=== PATIENT | female | born 1945 | race Caucasian/White ===

== ENCOUNTER 2016-12-19 04:54 | Observation (INO) | payer MEDICARE, BC ==
[2016-12-19] MEDS ORDERED: Nitroglycerin TAB 0.4 MG* 0.4 MG TAB SL ONE (05:17)
[2016-12-19] MEDS ORDERED: NS 0.9% 1000 ML* 1,000 ML IV SCH ×2 (05:30→08:30)
[2016-12-19 05:35] LABS: Hematocrit 44 % (35-47); Mean Corpuscular HGB Conc 34 g/dl (31-36); Mean Corpuscular Hemoglobin 34 pg (27-31); Mean Corpuscular Volume 98 fL (80-97); Mean Platelet Volume 8 um3 (7.4-10.4); Red Blood Count 4.46 10^6/ul (4.0-5.4); Red Cell Distribution Width 13 % (10.5-15); White Blood Count 9.1 10^3/ul (3.5-10.8)
[2016-12-19 05:52] LABS: ALT 19 U/L (7-52); Albumin 4.8 g/dL (3.2-5.2); Alkaline Phosphatase 69 U/L (34-104); BUN/Creatinine Ratio 14.8 (8-20); Blood Urea Nitrogen 12 mg/dL (6-24); C Reactive Protein 3.42 mg/L (< 5.00); CO2 Carbon Dioxide 26 mmol/L (22-32); Calcium 10.4 mg/dL (8.6-10.3); Chloride 94 mmol/L (101-111); Creatine Kinase 122 U/L (10-223); EGFR African American 89.1 (>60); EGFR Non-African American 69.3 (>60); Globulin 3.1 g/dL (2-4); Glucose 101 mg/dL (70-100); Lipase 27 U/L (11.0-82.0); Sodium 130 mmol/L (133-145); Total Protein 7.9 g/dL (6.4-8.9)
[2016-12-19 06:07] LABS: TSH (Thyroid Stimulating Horm) 0.85 mcIU/mL (0.34-5.60)
[2016-12-19 06:37] LABS: Anion Gap 10 mmol/L (2-11)
[2016-12-19] MEDS ORDERED: Iohexol 350* (CONTRAST) 500 ML MDV IV ONE (06:38)
--- NOTE | 2016-12-19 08:06 | RAD ---
INDICATION: Chest pain. COMPARISON: Comparison is made with a prior study from January 16, 2013. TECHNIQUE: A portable view of the chest was obtained. FINDINGS: Cardiac and mediastinal contours appear to be within normal limits. The lungs are hyperinflated and clear. No pleural effusion is seen. IMPRESSION: NO EVIDENCE FOR ACUTE DISEASE.
--- NOTE | 2016-12-19 08:09 | RAD ---
Indication: Chest pain, wide mediastinum on chest x-ray Contrast: Administered 100.0 ml of OMNIPAQUE 350 mgi/ml CTA of the chest, abdomen and pelvis was performed after IV contrast administration. No oral contrast was administered. Coronal, sagittal and 3-D reconstructive images were obtained. There is no evidence of aortic aneurysm or aortic dissection. The ascending aorta measures approximately 3.3 cm in greatest AP dimension. Descending aorta measures 3.0 cm in greatest dimension. Atherosclerosis with intimal calcifications are noted. The abdominal aorta demonstrates normal celiac axis and superior mesenteric artery. Renal arteries are grossly unremarkable. Common iliac arteries and external iliac arteries are unremarkable. Inferior thyroid lobes are unremarkable. No mediastinal or hilar adenopathy. Heart is of normal size without evidence of pericardial effusion. The trachea and major bronchi appear patent. No evidence of alveolar consolidation is noted. CT of the abdomen and pelvis demonstrates liver to be normal in size. Low density lesion in the medial segment of left lobe of liver measures up to 2.9 cm. Left lobe liver lesion measures up to 1.5 cm. No intrahepatic ductal dilatation is noted. The pancreas demonstrates no mass or pancreatic duct dilatation. The common duct is not dilated. The gallbladder demonstrates no calcified gallstones. No pericholecystic fluid or wall thickening is identified. The spleen is normal in size. No adrenal lesions are noted. The kidneys demonstrate symmetric nephrograms no retroperitoneal adenopathy is noted. Small bowel and colon demonstrates no evidence of abnormal bowel dilatation. Urinary bladder is otherwise unremarkable. IMPRESSION: CTA of the chest abdomen and pelvis demonstrates an atherosclerotic aorta without focal aneurysmal dilatation or aortic dissection. Hepatic cysts are noted.
[2016-12-19] MEDS ORDERED: Aspirin TAB* 325 MG PO PRN (08:25)
[2016-12-19] MEDS ORDERED: ALPRAZolam TAB* 0.25 MG PO PRN (08:25)
[2016-12-19] MEDS ORDERED: Acetaminophen TAB* 325 MG PO PRN (08:27)
[2016-12-19] MEDS ORDERED: Calcium Carbonate CHEW TAB* 500 MG (TUMS) PO PRN (09:00)
[2016-12-19] MEDS ORDERED: Potassium Chlor TAB* 20 MEQ TAB.ER PO ONE (09:14)
--- NOTE | 2016-12-19 09:33 | ED ---
Sadi Enrique Alfonso, scribed for Roderick Reynolds MD on 12/19/16 at 0836 . Progress - Progress Note Progress Note: CTA Chest reveals an atherosclerotic aorta without focal aneurysmal dilatation or aortic dissection. CXR reveals NO EVIDENCE FOR ACUTE DISEASE. The patient was signed out by Dr. Pimentel. He requested to consult Dr. Claudio for admission due to CP r/o acute coronary system. Dr. Claudio reports the patient should be admitted to under a hospitalist services. Therefore, I discussed the case with Dr. Murphy who agrees to admit the patient for further work up and management. Course/Dx - Diagnoses Provider Diagnoses: chest pain r/o ACS The documentation as recorded by the betitoibSadi horvath Alfonso accurately reflects the service I personally performed and the decisions made by , Roderick Reynolds MD.
[2016-12-19 11:37] LABS: Calcium (PTH Intact) 10.1 mg/dL (8.6-10.3)
--- NOTE | 2016-12-19 14:06 | HP ---
CC: Dr. Claudio; Dr. Rascon; Dr. Estes * HISTORY AND PHYSICAL: DATE OF ADMISSION: 12/19/16 PRIMARY CARE PHYSICIAN: Dr. Claudio. CHIEF COMPLAINT: Chest pain. HISTORY OF PRESENT ILLNESS: Guera Ceja is a 71-year-old female with history of microscopic colitis and hiatal hernia as well as gastroesophageal reflux disease. The patient stated that usually she wakes up at 2 a.m. with her reflux symptoms of esophageal burning and takes Rolaids. In the past 2 nights, she would wake up at 4 a.m. In addition to the esophageal burning, she would have epigastric pain radiating to bilateral lower chest areas associated with nausea. She also would have at that point a sensation of flush and warmth in bilateral upper extremities and subsequent 2 loose bowel movements. That happened 2 nights in a row and tonight she came in for evaluation. Her troponin is negative and her EKG shows nonspecific minimal ST depressions in leads V3 and V4. The ED physician requested for the patient to be observed to rule out angina. PAST MEDICAL HISTORY: 1. Hypertension. 2. 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 The patient receives Botox injections by Dr. Estes every 3 months. 3. History of cataract surgery. 4. Vitamin D deficiency. 5. History of microscopic colitis under the care of Dr. Rascon. 6. History of hypothyroidism. 7. Tonsillectomy and adenoidectomy. 8. Oophorectomy. 9. Appendectomy. 10. Hypertension. 11. Hiatal hernia. ALLERGIES: ERYTHROMYCIN. MEDICATIONS: Includes simvastatin 10 mg at bedtime, levothyroxine 88 mcg daily , multivitamin 1 tablet daily, hydrochlorothiazide 25 mg daily, calcium with vitamin D 600 mg daily, Carlita 180 mg daily p.r.n., aspirin 650 mg daily p.r.n. , alprazolam 0.25 mg daily p.r.n. The patient also states she was prescribed by Dr. Rascon budesonide and she takes a tablet of unknown dose on a p.r.n. basis when her colitis acts up. FAMILY HISTORY: Positive for father and uncle with lymphoma. Father at the age of 92 with non-Hodgkin's lymphoma. The patient's mother had history of heart disease. SOCIAL HISTORY: The patient has history of smoking, quit at the age of 38. She drinks alcohol rarely. She denies any drug use. She lives with a significant other of 20-some years. Her healthcare proxy is her daughter, Bradly Craft and second healthcare proxy is her sister, Clari Ceja. 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 She is fully independent with her activities of daily living. REVIEW OF SYSTEMS: Please see history of present illness. The patient stated that her colitis "acted up" last week and she had to take budesonide 3 days in a row. She stated that usually she takes budesonide on an as needed basis and the durations in between exacerbations of her colitis could be up to 2 months. For the past 2 nights, she had been waken up in the middle of the night as mentioned above with sensation similar to her reflux disease, but associated also with pain and sensation of heat in bilateral upper extremities and subsequent 2 episodes of diarrhea. She did not have any diarrhea during the daytime. Her appetite had been poor in the past 24 hours. She denies any vomiting, but she complained of nausea together with a sensation of chest pain as mentioned above. Both of those episodes were self limited at night. Today, her pain was worse in which she presented to the ED and was relieved by nitroglycerin Overall, she had been feeling tired for the past couple of months, but denies dyspnea on exertion or chest pain with exertion. She also complains of feeling occasionally dizzy and off balance. The remaining 14 systems were reviewed with the patient and were otherwise negative. PHYSICAL EXAMINATION GENERAL: The patient is a very pleasant 71-year-old male who is in no acute distress. Alert, awake and oriented x3. VITAL SIGNS: Blood pressure of 151/80, heart rate of 77 and regular, respiratory rate 18, oxygen saturation 96% on room air, temperature of 98.7. HEENT: Head atraumatic, normocephalic. Eyes: Pupils equal and reactive to light and accommodation. Oropharynx clear. Mucosa moist. NECK: Supple. No JVD. No bruits bilaterally. RESPIRATORY: Clear to auscultation bilaterally. CARDIOVASCULAR: Regular rate and rhythm. No murmur. ABDOMEN: Tender in the epigastric region with no rebound, no guarding. Bowel sounds are present in all 4 quadrants. EXTREMITIES: There is no edema. Pulses 2+ bilaterally. No clubbing or cyanosis. NEURO EVALUATION: Speech clear. Cranial nerves II through XII are grossly intact. Motor strength is 5/5 bilaterally. SKIN: On evaluation of the skin, no ecchymotic areas or rashes or noted. PSYCHIATRIC EVALUATION: Awake, alert and oriented x3, pleasant and cooperative with evaluation with no evidence of anxiety or depression. LABORATORY DATA/DIAGNOSTIC STUDIES: White blood cell count of 9.1, hemoglobin of 15, hematocrit 44, MCV of 98, and platelets of 336. D-dimer below 200. Sodium of 130, potassium of 3.1, chloride 94, carbon dioxide 26, BUN 12, creatinine 0.81. Liver function tests were unremarkable. Calcium mildly elevated at 10.4. Troponin of 0. CT angiogram of chest, abdomen and pelvis obtained in the ED, impression: "CT of the chest, abdomen, and pelvis demonstrates an atherosclerotic aorta without focal aneurysmal dilatation or aortic dissection. Hepatic cysts are noted." The patient's EKG showed normal sinus rhythm with a heart rate of 68 beats per minute with nonspecific ST changes in leads V3 and V4 with depression of 0.5 to 1 mm in those areas. This is slightly more pronounced on comparing to an EKG from 2006. ASSESSMENT AND PLAN: 1. In regards to the patient's chest pain. It appears to be more related to reflux disease. The patient has epigastric tenderness. She has had history of reflux. Her cardiac workup is otherwise grossly unremarkable apart from very minimal changes on the EKGs. At this point, the patient is going to be placed on overnight observation with followup troponins and stress test in the morning. For the GI symptoms of the patient's reflux, the patient is going to be continued on Tums. I questioned if the patient's microscopic colitis had been flaring up again, the patient stated that usually her symptoms with loose bowel movements at night are not related to her colitis. She does appear to be mildly dehydrated with elevated calcium level and hydration and replace the patient's potassium. Her hyponatremia is most likely due to dehydration. Please also note that the patient's hyponatremia may have been exacerbated by use of hydrochlorothiazide which is going to be held. 2. In regards to the patient's hypothyroidism, her levothyroxine is going to be continued. 3. In regards to hypercalcemia most likely due to dehydration, but PTH is going to be checked to rule out parathyroid abnormality. 4. For DVT prophylaxis, the patient is going to be placed on heparin subcutaneously. 5. The patient's code status is full and the surrogate decision maker is her daughter Bradly as mentioned above. TIME SPENT: Approximately 65 minutes was spent on admission of this patient, more than half that time was spent [id number] with the patient doing the interview and physical exam. [id number]/CPS #: [id number] MTDD
[2016-12-19] MEDS: Heparin VIAL(*) 5000 UNITS/ML VIAL (FIVE THOUSAND) SUBCUT SCH ×2 (14:13→21:31)
[2016-12-20 05:22] LABS: Hematocrit 40 % (35-47); Hemoglobin 13.4 g/dl (12.0-16.0); Mean Corpuscular HGB Conc 34 g/dl (31-36); Mean Corpuscular Hemoglobin 34 pg (27-31); Mean Corpuscular Volume 100 fL (80-97); Mean Platelet Volume 8 um3 (7.4-10.4); Red Blood Count 3.99 10^6/ul (4.0-5.4); Red Cell Distribution Width 12 % (10.5-15); White Blood Count 8.8 10^3/ul (3.5-10.8)
[2016-12-20 05:24] LABS: BUN/Creatinine Ratio 14.9 (8-20); Calcium 9.3 mg/dL (8.6-10.3); EGFR Non-African American 86.3 (>60); Potassium 3.5 mmol/L (3.5-5.0)
[2016-12-20] MEDS: Heparin VIAL(*) 5000 UNITS/ML VIAL (FIVE THOUSAND) SUBCUT SCH (06:11)
[2016-12-20] MEDS ORDERED: Levothyroxine TAB* 88 MCG TAB PO SCH (08:00)
--- NOTE | 2016-12-20 08:34 | PN ---
Subjective - Subjective Reason for Note: Progress Note History: Contingent Discharge Summary: I obtained the presentation from Guera Angelo and from Dr. Murphy's admitting history and physical. She has noted some weight loss recently and has had poor balance. She has a longstanding history of a hiatal hernia and also of GERD and sleeps with her head propped up. Saturday night she was awoken by 6/10 pain lower chest/epigastric region that radiated to her back. She noted some shortness of breath. There was associated diarrhea. Saturday morning this was gone when she awoke. Saturday night the same thing happened and hence she came to the ED as she was worried about a cardiac problem. Sat evening/night (last night) no recurrent symptoms in the hospital. She has no exertional chest pain/dyspnea or palpitations or edema. No prior cardiac history Active Problems: Active Problems Chest pain (Acute) R07.9 Essential hypertension (Chronic) I10 Essential tremor (Chronic) G25.0 GERD (gastroesophageal reflux disease) (Chronic) K21.9 Hiatal hernia (Chronic) K44.9 Hypothyroidism (Chronic) E03.9 Overweight (Chronic) E66.3 Current Medications: Current Medications Acetaminophen (Tylenol Tab*) 650 mg PO Q4H PRN PRN Reason: FEVER/PAIN Alprazolam (Xanax Tab*) 0.25 mg PO DAILY PRN PRN Reason: TREMORS Aspirin (Aspirin Tab*) 650 mg PO DAILY PRN PRN Reason: PAIN Calcium Carbonate (Tums*) 500 mg PO Q4H PRN PRN Reason: DISCOMFORT Heparin Sodium (Porcine) (Heparin Vial(*)) 5,000 units SUBCUT Q8HR [facility] Last Admin: 12/20/16 06:11 Dose: Not Given Sodium Chloride (Ns 0.9% 1000 Ml*) 1,000 mls @ 125 mls/hr IV PER RATE [facility] Last Admin: 12/19/16 10:01 Dose: 125 mls/hr Levothyroxine Sodium (Synthroid Tab*) 88 mcg PO 0800 [facility] Last Admin: 12/20/16 08:09 Dose: 88 mcg Home Medications: Home Medications Medication Instructions Recorded Confirmed Type ALPRAZolam TAB* [Xanax TAB*] 0.25 mg PO DAILY PRN 11/12/12 12/19/16 History Calcium 600+D3 1 tab PO QAM 11/12/12 12/19/16 History Fexofenadine (NF) [Carlita 180 180 mg PO DAILY PRN 11/12/12 12/19/16 History (NF)] Hydrochlorothiazide TAB* 25 mg PO BEDTIME 11/12/12 12/19/16 History [Hydrodiuril TAB*] Levothyroxine TAB* [Synthroid TAB*] 88 mcg PO 0800 11/12/12 12/19/16 History Multiple Vitamin [Multivitamins] 1 cap PO WEEKLY 11/12/12 12/19/16 History Simvastatin TAB(NF) 10 mg PO BEDTIME 11/12/12 12/19/16 History Aspirin [Zuhair Aspirin 325 MG] 650 mg PO DAILY PRN 12/19/16 12/19/16 History Allergies: Allergies Allergy/AdvReac Type Severity Reaction Status Date / Time Erythromycin Allergy Severe Hives Verified 12/19/16 06:16 Objective - Vital Signs Vital Signs: Vital Signs 12/19/16 12/19/16 12/19/16 09:15 11:00 15:10 Temperature 97.6 F 97.6 F 97.7 F Pulse Rate 71 73 70 Respiratory 14 16 18 Rate Blood Pressure 138/80 136/70 131/73 (mmHg) O2 Sat by Pulse 97 98 99 Oximetry 12/19/16 12/19/16 12/19/16 19:50 20:33 22:30 Temperature 97.7 F 97.7 F Pulse Rate 76 76 Respiratory 16 16 16 Rate Blood Pressure 125/72 125/72 (mmHg) O2 Sat by Pulse 96 96 Oximetry 12/19/16 12/19/16 12/19/16 22:40 22:50 23:00 Temperature Pulse Rate Respiratory 17 17 16 Rate Blood Pressure (mmHg) O2 Sat by Pulse Oximetry 12/19/16 12/19/16 12/19/16 23:10 23:20 23:30 Temperature Pulse Rate Respiratory 18 19 11 Rate Blood Pressure (mmHg) O2 Sat by Pulse Oximetry 12/19/16 12/19/16 12/20/16 23:40 23:50 00:00 Temperature Pulse Rate Respiratory 11 19 7 Rate Blood Pressure (mmHg) O2 Sat by Pulse Oximetry 12/20/16 12/20/16 12/20/16 00:02 00:10 00:20 Temperature 97.7 F Pulse Rate 69 Respiratory 16 15 10 Rate Blood Pressure 137/77 (mmHg) O2 Sat by Pulse 97 Oximetry 12/20/16 12/20/16 12/20/16 00:30 00:40 00:50 Temperature Pulse Rate Respiratory 1 0 2 Rate Blood Pressure (mmHg) O2 Sat by Pulse Oximetry 12/20/16 12/20/16 12/20/16 01:00 01:10 01:20 Temperature Pulse Rate Respiratory 8 15 9 Rate Blood Pressure (mmHg) O2 Sat by Pulse Oximetry 12/20/16 12/20/16 12/20/16 01:30 01:40 01:50 Temperature Pulse Rate Respiratory 13 17 10 Rate Blood Pressure (mmHg) O2 Sat by Pulse Oximetry 12/20/16 12/20/16 12/20/16 02:00 02:10 02:20 Temperature Pulse Rate Respiratory 15 9 2 Rate Blood Pressure (mmHg) O2 Sat by Pulse Oximetry 12/20/16 12/20/16 12/20/16 02:30 02:40 02:50 Temperature Pulse Rate Respiratory 2 6 15 Rate Blood Pressure (mmHg) O2 Sat by Pulse Oximetry 12/20/16 12/20/16 12/20/16 03:00 03:10 03:20 Temperature Pulse Rate Respiratory 15 15 15 Rate Blood Pressure (mmHg) O2 Sat by Pulse Oximetry 12/20/16 12/20/16 12/20/16 03:30 03:40 03:48 Temperature 98.1 F Pulse Rate 64 Respiratory 27 10 16 Rate Blood Pressure 128/65 (mmHg) O2 Sat by Pulse 96 Oximetry 12/20/16 12/20/16 12/20/16 03:50 04:00 04:10 Temperature Pulse Rate Respiratory 17 12 12 Rate Blood Pressure (mmHg) O2 Sat by Pulse Oximetry 12/20/16 12/20/16 12/20/16 04:20 04:30 04:40 Temperature Pulse Rate Respiratory 13 15 13 Rate Blood Pressure (mmHg) O2 Sat by Pulse Oximetry 12/20/16 12/20/16 12/20/16 04:50 05:00 05:10 Temperature Pulse Rate Respiratory 9 4 6 Rate Blood Pressure (mmHg) O2 Sat by Pulse Oximetry 12/20/16 12/20/16 12/20/16 05:20 05:30 05:40 Temperature Pulse Rate Respiratory 16 16 16 Rate Blood Pressure (mmHg) O2 Sat by Pulse Oximetry 12/20/16 12/20/16 12/20/16 05:50 06:00 06:10 Temperature Pulse Rate Respiratory 22 17 15 Rate Blood Pressure (mmHg) O2 Sat by Pulse Oximetry 12/20/16 12/20/16 12/20/16 06:20 06:32 06:40 Temperature Pulse Rate Respiratory 14 22 31 Rate Blood Pressure (mmHg) O2 Sat by Pulse Oximetry 12/20/16 07:23 Temperature Pulse Rate Respiratory 31 Rate Blood Pressure (mmHg) O2 Sat by Pulse Oximetry - Intake and Output Intake and Output: Intake & Output 12/17/16 12/18/16 12/19/16 12/20/16 11:59 11:59 11:59 11:59 Intake Total 980 820 Output Total 0 Balance 980 820 Weight 152 lb 3.2 oz Intake: IV Fluids 980 Oral 820 Output: Urine 0 Other: Estimated Void Medium # Bowel Movements 0 # Voids 2 ADLs: Meal Record Start: 12/19/16 09: 15 Freq: DAILY@0900,1400,1800 Status: Active Document 12/19/16 11:38 [id number] (Rec: 12/19/16 11:39 [id number]) Document 12/19/16 14:00 [id number] (Rec: 12/19/16 14:23 [id number]) Intake and Output Start: 12/19/16 09: 15 Freq: DAILY@0600,1400,2200 Status: Active Document 12/19/16 14:00 [id number] (Rec: 12/19/16 14:10 [id number]) Document 12/19/16 22:00 [id number] (Rec: 12/19/16 22:47 [id number]) Document 12/20/16 05:21 [id number] (Rec: 12/20/16 05:23 [id number]) - Physical Exam General Physical Exam Comment: warm and well perfused. In no acute distress and hemodynamically stable General: No Cyanosis, No Anemia, No Jaundice, No Clubbing Lungs and Chest: Yes: Chest Expansion Full, Chest Expansion Symetrica, Percussion Note Resonant, Vessicular Breath Sounds. No: Crackles, Wheezes Heart Rate and Rhythm: Regular JVP: Not Elevated Additional Cardiovascular: Yes: Normal Heart Sounds. No: Heart Murmur, Pedal Edema Abdominal Exam: Yes: Soft, Bowel Sounds Present. No: Distention, Abdominal Mass , Hepatomegaly, Abdominal Tenderness - Extremities Cranial Nerves II-XII Intact: Yes Limbs: Normal Power, Normal Tone - Neuro Orientation: A/O x3 Psychiatric: Normal Speech: Normal Results - Results Lab Results: Laboratory Results - last 24 hr 12/19/16 12/19/16 12/19/16 09:25 10:56 10:56 WBC RBC Hgb Hct MCV MCH MCHC RDW Plt Count MPV Neut % (Auto) Lymph % (Auto) [place] % (Auto) Eos % (Auto) Baso % (Auto) Absolute Neuts (auto) Absolute Lymphs (auto) Absolute Monos (auto) Absolute Eos (auto) Absolute Basos (auto) Absolute Nucleated RBC Nucleated RBC % Sodium Potassium Chloride Carbon Dioxide Anion Gap BUN Creatinine Est GFR ( Amer) Est GFR (Non-Af Amer) BUN/Creatinine Ratio Glucose Calcium Troponin I 0.00 0.00 PTH Intact 3.1 Calcium (PTH Intact) 10.1 12/20/16 12/20/16 04:34 04:34 WBC 8.8 RBC 3.99 L Hgb 13.4 Hct 40 MCV 100 H MCH 34 H MCHC 34 RDW 12 Plt Count 286 MPV 8 Neut % (Auto) 65.5 Lymph % (Auto) 20.9 L [place] % (Auto) 9.0 Eos % (Auto) 3.8 Baso % (Auto) 0.8 Absolute Neuts (auto) 5.8 Absolute Lymphs (auto) 1.8 Absolute Monos (auto) 0.8 Absolute Eos (auto) 0.3 Absolute Basos (auto) 0.1 Absolute Nucleated RBC 0.01 Nucleated RBC % 0.1 Sodium 135 Potassium 3.5 Chloride 102 Carbon Dioxide 26 Anion Gap 7 BUN 10 Creatinine 0.67 Est GFR ( Amer) 111.0 Est GFR (Non-Af Amer) 86.3 BUN/Creatinine Ratio 14.9 Glucose 93 Calcium 9.3 Troponin I PTH Intact Calcium (PTH Intact) Radiology Results: Patient Name: GUERA ANGELO Medical Record#: [id number] Ordering Physician: Elijah Pimentel MD Acct.#: [id number] : 1945 Age: 71 Sex: F Location: EMERGENCY DEPARTMENT Exam Date: 12/19/16626 ADM Status: REG ER Order Information: CTA CHEST/ABD/PEL Accession Number: [id number] CPT: 71815 Indication: Chest pain, wide mediastinum on chest x-ray Contrast: Administered 100.0 ml of OMNIPAQUE 350 mgi/ml CTA of the chest, abdomen and pelvis was performed after IV contrast administration. No oral contrast was administered. Coronal, sagittal and 3-D reconstructive images were obtained. There is no evidence of aortic aneurysm or aortic dissection. The ascending aorta measures approximately 3.3 cm in greatest AP dimension. Descending aorta measures 3.0 cm in greatest dimension. Atherosclerosis with intimal calcifications are noted. The abdominal aorta demonstrates normal celiac axis and superior mesenteric artery. Renal arteries are grossly unremarkable. Common iliac arteries and external iliac arteries are unremarkable. Inferior thyroid lobes are unremarkable. No mediastinal or hilar adenopathy. Heart is of normal size without evidence of pericardial effusion. The trachea and major bronchi appear patent. No evidence of alveolar consolidation is noted. CT of the abdomen and pelvis demonstrates liver to be normal in size. Low density lesion in the medial segment of left lobe of liver measures up to 2.9 cm. Left lobe liver lesion measures up to 1.5 cm. No intrahepatic ductal dilatation is noted. The pancreas demonstrates no mass or pancreatic duct dilatation. The common duct is not dilated. The gallbladder demonstrates no calcified gallstones. No pericholecystic fluid or wall thickening is identified. The spleen is normal in size. No adrenal lesions are noted. The kidneys demonstrate symmetric nephrograms no retroperitoneal adenopathy is noted. Small bowel and colon demonstrates no evidence of abnormal bowel dilatation. Urinary bladder is otherwise unremarkable. IMPRESSION: CTA of the chest abdomen and pelvis demonstrates an atherosclerotic aorta without focal aneurysmal dilatation or aortic dissection. Hepatic cysts are noted. <Electronically signed by Anyi Avelar MD in [place]> 12/19/16805 Dictated By: Anyi Avelar MD Dictated Date/Time: 12/19/16 0806 Transcribed Date/Time: 12/19/16 0801 Copy to: 1 of 2 Assessment - Problem List Assessment: Patient Problems Chest pain (Acute) Essential hypertension (Chronic) Essential tremor (Chronic) GERD (gastroesophageal reflux disease) (Chronic) Hiatal hernia (Chronic) Hypothyroidism (Chronic) Overweight (Chronic) Plan: Chest pain (Acute) Thus far there is nothing to indicate a cardiac cause for her symptoms. A CT chest/abdo and pelvis has ruled out pancreatitis, PE and other intra-abdominal pathology. I will complete the CVS risk assessment with a stress test. I think this is due to esophagitis from GERD. I will start her on omeprazole and discharge her home Essential hypertension (Chronic) controlled Essential tremor (Chronic) secondary diagnosis GERD (gastroesophageal reflux disease) (Chronic) See above Hiatal hernia (Chronic) She had an EGD about 5 years ago. Hypothyroidism (Chronic) secondary diagnosis Overweight (Chronic) secondary diagnosis I explained the above to the patient. She would like to proceed to the stress test. I will discharge her home on omeprazole and she will follow up as an out patient next week.
[2016-12-20] MEDS ORDERED: Omeprazole CAP* 20 MG PO SCH (09:00)
[2016-12-20 12:36] VITALS: BP 120/80
--- NOTE | 2016-12-20 13:49 | RAD ---
INDICATION: Chest pain. COMPARISON: Correlation is made with a prior chest x-ray study from December 19, 2016. Technique: A single day myocardial perfusion stress study was performed. Initially the resting study was performed. The patient was given an intravenous injection of 11.0 mCi of technetium 99m tetrofosmin and and the heart was imaged in multiple projections. The patient refused the stress portion of the exam. Images were reconstructed in the axial, sagittal and coronal planes and in a 3-D format. FINDINGS: Review of the resting data set of images demonstrates decreased activity in the septum and inferior vo which resolves on the attenuation corrected images and therefore most consistent with attenuation artifact. There is otherwise normal distribution of radiopharmaceutical. IMPRESSION: NORMAL REST ONLY STUDY.
--- NOTE | 2016-12-24 17:53 | ED ---
Maria Teresa Enrique Rebecca, scribed for Elijah Pimentel MD on 12/19/16 at 0514 . HPI Chest Pain - HPI Summary HPI Summary: Pt is a 71 y/o F who presents to ED c/o CP. Pain began 2 nights ago and returned this morning at 0330, waking her up from sleep. Pain is across the chest with radiation into the back and bilateral upper portions of the UE. Pain is currently moderate, ranked 3/10 though at its worst it is ranked 5/10 and characterized as a sore sensation. Pt took 2 tabs of ASA [employer]ER. Sx aggravated by stress, alleviated by holding still. Additionally c/o fever, chills, N/D, diaphoresis (yesterday, intermittent) and SOB (mild). Denies abd pain. Last stress test was multiple years ago. Notes the presence of a hiatal hernia. SHx former smoker (quit ~ 40 years ago). No PMHx CAD, HTN. FHx aortic aneurysm ( mother). - History of Current Complaint Chief Complaint: EDChestPainROMI Time Seen by Provider: 12/19/16 05:01 Hx Obtained From: Patient Onset/Duration: Still Present, Worse Since - this morning at 0330 Time of Onset: 03:30 Timing: Intermittent Initial Severity: Moderate Current Severity: Mild Pain Intensity: 3 Pain Scale Used: 0-10 Numeric Chest Pain Location: Diffuse - Across the chest Chest Pain Radiates: Yes Chest Pain Radiates To:: Back, Arm - Upper portion of the UE, bilaterally Character: Other: - Soreness Aggravating Factor(s): Other: - Stress Alleviating Factor(s): Rest Associated Signs and Symptoms: Positive: Shortness of Breath - mild, Fever, Chills, Diaphoresis - yesterday, intermittent, Nausea, Other: - Diarrhea. Negative: Abdominal Pain - Allergy/Home Medications Allergies/Adverse Reactions: Allergies Allergy/AdvReac Type Severity Reaction Status Date / Time Erythromycin Allergy Severe Hives Verified 12/19/16 06:16 Home Medications: Home Medications Aspirin [Zuhair Aspirin 325 MG] 650 mg PO DAILY PRN 12/19/16 [History Confirmed 12/19/16] PMH/Surg Hx/FS Hx/Imm Hx Endocrine/Hematology History: Reports: Hx Thyroid Disease - ON DAILY LEVOTHYROXIN Cardiovascular History: Reports: Hx Hypertension - IS ON HCTZ DAILY, BP BORDERLINE Respiratory History: Reports: Hx Asthma GI History: Reports: Hx Gastroesophageal Reflux Disease - USES TUMS PRN, Hx Hiatal Hernia - CONTROLLED WITH DIET Musculoskeletal History: Denies: Hx Osteoporosis Sensory History: Reports: Hx Cataracts Opthamlomology History: Reports: Hx Cataracts Neurological History: Reports: Other Neuro Impairments/Disorders - NECK TRMORS, HAS MEDS TO TAKE PRN FOR RELIEF - Surgical History Surgery Procedure, Year, and Place: 9 T&A. 1974 APPENDECTOMY. 2009 RT OVARY REMOVED [facility] Hx Anesthesia Reactions: No - Family History Known Family History: Positive: Other - Aortic aneurysm (mother) - Social History Substance Use Type: Reports: None Smoking Status (MU): Former Smoker - QUIT ~ 40 YEARS AGO Review of Systems Positive: Fever, Chills, Skin Diaphoresis - intermittent, yesterday Positive: Chest Pain - across the chest with radiation to the back and upper portion of the UE, bilaterally Positive: Shortness Of Breath - mild Positive: Diarrhea, Nausea. Negative: Abdominal Pain All Other Systems Reviewed And Are Negative: Yes Physical Exam - Summary Physical Exam Summary: General: well-appearing, no pain distress Skin: warm, color reflects adequate perfusion, dry Head: normal Eyes: EOMI, CATE ENT: normal Neck: supple, mild tenderness to palpation in the epigastrum which she says that is not the same pain as she has now Respiratory: CTA, breath sounds present Cardiovascular: RRR Abdomen: soft, nontender Bowel: present Musculoskeletal: normal, strength/ROM intact Neurological: normal, sensory/motor intact, A&O x3 Psychological: affect/mood appropriate Triage Information Reviewed: Yes Vital Signs On Initial Exam: Initial Vitals Temp Pulse Resp BP Pulse Ox 98.5 F 74 16 180/89 96 12/19/16 05:05 12/19/16 05:05 12/19/16 05:05 12/19/16 05:05 12/19/16 05:05 Vital Signs Reviewed: Yes Diagnostics - Vital Signs Vital Signs Temp Pulse Resp BP Pulse Ox 12/19/16 07:50 98.7 F 77 18 151/80 96 12/19/16 07:05 17 12/19/16 06:30 136/89 12/19/16 06:00 76 18 126/81 94 12/19/16 05:30 75 14 134/88 95 12/19/16 05:21 74 12/19/16 05:08 81 180/89 97 12/19/16 05:07 83 96 12/19/16 05:05 98.5 F 74 16 180/89 96 - Laboratory Lab Results: Lab Results 12/19/16 12/19/16 12/19/16 Range/Units 05:12 05:12 05:12 WBC 9.1 (3.5-10.8) 10^3/ul RBC 4.46 (4.0-5.4) 10^6/ul Hgb 15.0 (12.0-16.0) g/dl Hct 44 (35-47) % MCV 98 H (80-97) fL MCH 34 H (27-31) pg MCHC 34 (31-36) g/dl RDW 13 (10.5-15) % Plt Count 336 (150-450) 10^3/ul MPV 8 (7.4-10.4) um3 Neut % (Auto) 56.6 (38-83) % Lymph % (Auto) 26.7 (25-47) % Patrick % (Auto) 11.4 H (1-9) % Eos % (Auto) 4.4 (0-6) % Baso % (Auto) 0.9 (0-2) % Absolute Neuts (auto) 5.2 (1.5-7.7) 10^3/ul Absolute Lymphs (auto) 2.4 (1.0-4.8) 10^3/ul Absolute Monos (auto) 1.0 H (0-0.8) 10^3/ul Absolute Eos (auto) 0.4 (0-0.6) 10^3/ul Absolute Basos (auto) 0.1 (0-0.2) 10^3/ul Absolute Nucleated RBC 0 10^3/ul Nucleated RBC % 0 INR (Anticoag Therapy) 0.89 (0.89-1.11) APTT 33.3 (26.0-36.3) seconds D-Dimer, Quantitative < 200 (Less Than 230) ng/mL Sodium 130 L (133-145) mmol/L Potassium TNP Chloride 94 L (101-111) mmol/L Carbon Dioxide 26 (22-32) mmol/L Anion Gap 10 (2-11) mmol/L BUN 12 (6-24) mg/dL Creatinine 0.81 (0.51-0.95) mg/dL Est GFR ( Amer) 89.1 (>60) Est GFR (Non-Af Amer) 69.3 (>60) BUN/Creatinine Ratio 14.8 (8-20) Glucose 101 H (70-100) mg/dL Lactic Acid (0.5-2.0) mmol/L Calcium 10.4 H (8.6-10.3) mg/dL Total Bilirubin 0.60 (0.2-1.0) mg/dL AST TNP ALT 19 (7-52) U/L Alkaline Phosphatase 69 (34-104) U/L Total Creatine Kinase 122 (10-223) U/L CK-MB (CK-2) 2.6 (0.6-6.3) ng/mL Troponin I 0.00 (<0.04) ng/mL C-Reactive Protein 3.42 (< 5.00) mg/L B-Natriuretic Peptide ( - 100) pg/mL Total Protein 7.9 (6.4-8.9) g/dL Albumin 4.8 (3.2-5.2) g/dL Globulin 3.1 (2-4) g/dL Albumin/Globulin Ratio 1.5 (1-3) Lipase 27 (11.0-82.0) U/L TSH 0.85 (0.34-5.60) mcIU/mL 12/19/16 12/19/16 12/19/16 Range/Units 05:12 05:12 06:00 WBC (3.5-10.8) 10^3/ul RBC (4.0-5.4) 10^6/ul Hgb (12.0-16.0) g/dl Hct (35-47) % MCV (80-97) fL MCH (27-31) pg MCHC (31-36) g/dl RDW (10.5-15) % Plt Count (150-450) 10^3/ul MPV (7.4-10.4) um3 Neut % (Auto) (38-83) % Lymph % (Auto) (25-47) % Patrick % (Auto) (1-9) % Eos % (Auto) (0-6) % Baso % (Auto) (0-2) % Absolute Neuts (auto) (1.5-7.7) 10^3/ul Absolute Lymphs (auto) (1.0-4.8) 10^3/ul Absolute Monos (auto) (0-0.8) 10^3/ul Absolute Eos (auto) (0-0.6) 10^3/ul Absolute Basos (auto) (0-0.2) 10^3/ul Absolute Nucleated RBC 10^3/ul Nucleated RBC % INR (Anticoag Therapy) (0.89-1.11) APTT (26.0-36.3) seconds D-Dimer, Quantitative (Less Than 230) ng/mL Sodium (133-145) mmol/L Potassium 3.1 L Chloride (101-111) mmol/L Carbon Dioxide (22-32) mmol/L Anion Gap (2-11) mmol/L BUN (6-24) mg/dL Creatinine (0.51-0.95) mg/dL Est GFR ( Amer) (>60) Est GFR (Non-Af Amer) (>60) BUN/Creatinine Ratio (8-20) Glucose (70-100) mg/dL Lactic Acid 0.9 (0.5-2.0) mmol/L Calcium (8.6-10.3) mg/dL Total Bilirubin (0.2-1.0) mg/dL AST 23 ALT (7-52) U/L Alkaline Phosphatase (34-104) U/L Total Creatine Kinase (10-223) U/L CK-MB (CK-2) (0.6-6.3) ng/mL Troponin I (<0.04) ng/mL C-Reactive Protein (< 5.00) mg/L B-Natriuretic Peptide 36 ( - 100) pg/mL Total Protein (6.4-8.9) g/dL Albumin (3.2-5.2) g/dL Globulin (2-4) g/dL Albumin/Globulin Ratio (1-3) Lipase (11.0-82.0) U/L TSH (0.34-5.60) mcIU/mL Result Diagrams: 12/20/16 04:34 12/20/16 04:34 Lab Statement: Any lab studies that have been ordered have been reviewed, and results considered in the medical decision making process. - Radiology CXR Xray Interpretation: Positive (See Comments) - Lung myers clear. Mediastinum is wide. Radiology Interpretation Completed By: ED Physician - EKG 0505 Cardiac Rate: NL - 81 bpm EKG Rhythm: Sinus Rhythm ST Segment: Non-Specific - ST depression in the anterior leads Ectopy: None 0612 Cardiac Rate: NL - 68 bpm EKG Rhythm: Sinus Rhythm ST Segment: Non-Specific - A depressed ST in V3 and V4 Ectopy: None Re-Evaluation - Re-Evaluation First Eval Re-Evaluation Time: 06:19 Change: Improved Comment: Discussed admission plan with the pt. Chest Pain Course/Dx - Diagnoses Provider Diagnoses: chest pain r/o ACS - Provider Notifications Discussed Care Of Patient With: Tushar Malik Time Discussed With Above Provider: 06:03 Instructed by Provider To: Other - Will communicate with the incoming hospitalist about the pt. Discussed care of pt with Dr. Malik again at 0624, discussing the CXR and repeat EKG results. Discussed care of pt with Dr. Harleen Murphy at 0649 who discussed that she is an [facility] patient. Discharge - Discharge Plan Condition: Stable Disposition: ADMITTED TO [facility] The documentation as recorded by the Maria Teresa blackwell Rebecca accurately reflects the service I personally performed and the decisions made by me, Elijah Pimentel MD.
== END 2016-12-20 13:47 | disposition home or self-care (01) ==
LOC: ED 04:54 → MEDTELE 08:24
PROVIDERS: ADMIT Internal Medicine; ATTEND Internal Medicine
DX: R07.9 Chest pain, unspecified (principal); R10.13 Epigastric pain; R06.02 Shortness of breath; I10 Essential (primary) hypertension; G25.0 Essential tremor; E55.9 Vitamin D deficiency, unspecified; E03.9 Hypothyroidism, unspecified; I45.10 Unspecified right bundle-branch block; K21.9 Gastro-esophageal reflux disease without esophagitis; Z87.891 Personal history of nicotine dependence; Z79.899 Other long term (current) drug therapy
CPT/HCPCS: 36415; 71010; 71275; 74174; 78451; 80048; 80053; 82550; 82553; 83605; 83690; 83880; 83970; 84443; 84484; 85025; 85379; 85610; 85730; 86140; 93005; 96372; 99283; A9270-GY; A9502; G0378; Q9967

== ENCOUNTER 2020-08-15 12:50 | Observation (INO) ==
[2020-08-15 13:24] LABS: ABS Basophils 0.1 10^3/ul (0-0.2); ABS Eosinophils 0.1 10^3/ul (0-0.6); ABS Lymphocytes 2.1 10^3/ul (1.0-4.8); ABS Monocytes 1.1 10^3/ul (0-0.8); ABS Neutrophils 7.8 10^3/ul (1.5-7.7); Eosinophil % 0.9 %; Hematocrit 43 % (35-47); Hemoglobin 14.7 g/dL (12.0-16.0); Lymphocyte % 18.5 %; Mean Corpuscular HGB Conc 34 g/dL (31-36); Mean Corpuscular Hemoglobin 33 pg (27-31); Mean Corpuscular Volume 96 fL (80-97); Mean Platelet Volume 6.9 fL (7.4-10.4); Platelet Count 413 10^3/uL (150-450); Red Blood Count 4.44 10^6 /uL (3.70-4.87); Red Cell Distribution Width 13 % (10-15); White Blood Count 11.1 10^3/uL (3.5-10.8)
[2020-08-15 13:30] LABS: INR 1.03 (0.82-1.09)
[2020-08-15 13:43] LABS: Albumin 4.2 g/dL (3.2-5.2); Calcium 9.4 mg/dL (8.6-10.3); Total Bilirubin 0.9 mg/dL (0.2-1.0)
[2020-08-15 13:49] LABS: Albumin/Globulin Ratio 1.5 (1-3); BUN/Creatinine Ratio 14.9 (8-20); EGFR African American 92.1 (>60); EGFR Non-African American 76.1 (>60); Globulin 2.8 g/dL (2-4); Troponin I 0.01 ng/mL (<0.03)
[2020-08-15 13:51] LABS: Potassium 2.7 mmol/L (3.5-5.0)
[2020-08-15] MEDS ORDERED: Potassium Chlor 20 meq TAB.ER PO ONE (14:26)
[2020-08-15 17:21] LABS: TSH Ultra Thyroid Stim Horm 0.33 mcIU/mL (0.34-5.60)
[2020-08-15] MEDS ORDERED: Magnesium Hydroxide LIQ 30 ML UDC PO PRN (17:46)
[2020-08-15 17:56] LABS: Magnesium 2.2 mg/dL (1.9-2.7)
[2020-08-15 20:53] LABS: HDL Cholesterol 56.2 mg/dL
[2020-08-15] MEDS ORDERED: Enoxaparin 40 MG/0.4 ML SYR SUBCUT SCH (21:00)
[2020-08-15] MEDS ORDERED: CMC:Budesonide 3 mg CAP (NF) PO SCH (21:00)
[2020-08-15] MEDS ORDERED: CMC:Simvastatin 10 mg TAB (NF) PO SCH (21:00)
[2020-08-15] MEDS ORDERED: CMC:Budesonide 3 mg CAP (NF) PO PRN (21:47)
[2020-08-15 23:12] LABS: BUN/Creatinine Ratio 13.6 (8-20); EGFR Non-African American 86.8 (>60)
[2020-08-15 23:13] LABS: Calcium 9.6 mg/dL (8.6-10.3); EGFR African American 105.1 (>60)
[2020-08-15 23:17] LABS: Troponin I 0.01 ng/mL (<0.03)
[2020-08-16 06:14] LABS: BUN/Creatinine Ratio 14.3 (8-20); EGFR Non-African American 72.7 (>60); Potassium 3.2 mmol/L (3.5-5.0)
[2020-08-16] MEDS ORDERED: Regadenoson 0.4 MG/5 ML SYRINGE ONE (07:50)
[2020-08-16] MEDS ORDERED: Potassium Chlor 10 meq TAB PO ONE (09:00)
[2020-08-16] MEDS ORDERED: Potassium Chlor 10 meq TAB PO SCH ×2 (09:00)
[2020-08-16 11:05] VITALS: BP 124/76
[2020-08-16] MEDS ORDERED: CMC:Budesonide 3 mg CAP (NF) PO PRN (16:00)
[2020-08-17] MEDS ORDERED: Potassium Chlor 10 meq TAB PO SCH (09:00)
== END 2020-08-16 15:48 | disposition home or self-care (01) ==
LOC: ED 12:50 → MEDTELE 12:50
PROVIDERS: ADMIT Internal Medicine; ATTEND Internal Medicine

== ENCOUNTER 2021-03-05 09:37 | Inpatient (IN) ==
[2021-03-05] MEDS ORDERED: Morphine 4 MG/ML VIAL (1 ml) IV ONE ×2 (10:51→15:34)
[2021-03-05] MEDS ORDERED: Ondansetron 4 mg VIAL 2 MG/ML 2 ml VIAL IV ONE (10:51)
[2021-03-05 13:17] LABS: ABS Lymphocytes 0.8 10^3/ul (1.0-4.8); ABS Monocytes 0.9 10^3/ul (0-0.8); ABS Neutrophils 12.1 10^3/ul (1.5-7.7); Eosinophil % 0.1 %; Hematocrit 42 % (35-47); Hemoglobin 14.2 g/dL (12.0-16.0); Lymphocyte % 5.6 %; Mean Corpuscular HGB Conc 34 g/dL (31-36); Mean Corpuscular Hemoglobin 33 pg (27-31); Mean Corpuscular Volume 98 fL (80-97); Mean Platelet Volume 7.2 fL (7.4-10.4); Platelet Count 313 10^3/uL (150-450); Red Blood Count 4.29 10^6 /uL (3.70-4.87); Red Cell Distribution Width 13 % (10-15); White Blood Count 13.9 10^3/uL (3.5-10.8)
[2021-03-05 13:28] LABS: Activated Partial Thrombo Time 31.8 seconds (26.0-38.0); INR 1.11 (0.86-1.15)
[2021-03-05 13:31] LABS: Albumin 4.1 g/dL (3.2-5.2); Albumin/Globulin Ratio 1.5 (1-3); Calcium 9.2 mg/dL (8.6-10.3); EGFR African American 132.1 (>60); EGFR Non-African American 109.2 (>60); Globulin 2.8 g/dL (2-4); Potassium 3.3 mmol/L (3.5-5.0); Total Bilirubin 0.7 mg/dL (0.2-1.0); Total Protein 6.9 g/dL (6.4-8.9)
[2021-03-05] MEDS ORDERED: Potassium Chlor 20 meq TAB.ER PO ONE (14:54)
[2021-03-05 16:27] LABS: Rapid COVID-19 Molecular Undetected (Undetected)
[2021-03-05] MEDS: Heparin 5000 UNITS/ML 1 mL VIAL SUBCUT SCH (21:28)
[2021-03-05] MEDS: Morphine 2 MG/ML SYRINGE IV PRN (22:40)
[2021-03-06] MEDS: Morphine 2 MG/ML SYRINGE IV PRN ×3 (03:21→11:41)
[2021-03-06 06:38] LABS: ABS Eosinophils 0.1 10^3/ul (0-0.6); ABS Lymphocytes 1.1 10^3/ul (1.0-4.8); ABS Monocytes 0.9 10^3/ul (0-0.8); ABS Neutrophils 7.4 10^3/ul (1.5-7.7); Eosinophil % 0.7 %; Hematocrit 40 % (35-47); Lymphocyte % 11.4 %; Mean Corpuscular HGB Conc 35 g/dL (31-36); Mean Corpuscular Hemoglobin 34 pg (27-31); Mean Corpuscular Volume 98 fL (80-97); Mean Platelet Volume 7.5 fL (7.4-10.4); Platelet Count 298 10^3/uL (150-450); Red Blood Count 4.11 10^6 /uL (3.70-4.87); Red Cell Distribution Width 12 % (10-15); White Blood Count 9.5 10^3/uL (3.5-10.8)
[2021-03-06 06:48] LABS: Calcium 9.1 mg/dL (8.6-10.3); EGFR African American 106.7 (>60); EGFR Non-African American 88.2 (>60); Potassium 3.6 mmol/L (3.5-5.0)
[2021-03-06] MEDS: Heparin 5000 UNITS/ML 1 mL VIAL SUBCUT SCH (06:52)
[2021-03-06] MEDS: Vitamin THERAPEUTIC TAB PO SCH (08:47)
[2021-03-06] MEDS ORDERED: ceFAZolin 2 GM in NS PREMIX 2 GM/100 ML BAG IVPB ONE ×2 (13:14→13:41)
[2021-03-06] MEDS ORDERED: Bupivacaine 0.25% EPI 200,000 30 ML SDV ONE (13:54)
[2021-03-06] MEDS ORDERED: fentaNYL 100 mcg/2 ml 50 MCG/ML VIAL ONE (14:28)
[2021-03-06] MEDS ORDERED: Rocuronium 50 mg VIAL 10 mg/ml 5 ml VIAL (50 mg) ONE (14:28)
[2021-03-06] MEDS ORDERED: Propofol 10 MG/ML 20 ML BTL ONE (14:28)
[2021-03-06] MEDS ORDERED: Phenylephrine 40 mcg/mL 10mL (400mcg) SYRINGE ONE (14:51)
[2021-03-06] MEDS ORDERED: Acetaminophen IV 1 GM/100ML 100 ML IV ONE (15:11)
[2021-03-06] MEDS ORDERED: Dexamethasone IV 4 MG/ML VIAL 1 ml VIAL ONE (15:14)
[2021-03-06] MEDS ORDERED: Ondansetron 4 mg VIAL 2 MG/ML 2 ml VIAL ONE (15:14)
[2021-03-06] MEDS: CMCS: Simvastatin 10 mg TAB (NF) PO SCH (17:52)
[2021-03-06] MEDS: oxyCODONE/Acetamin 5/325 mg TAB PO PRN (17:52)
[2021-03-06] MEDS ORDERED: Famotidine IV 10 MG/ML 2 ml VIAL (20 mg) IV SLOW PU ONE (18:13)
[2021-03-06] MEDS ORDERED: Polyethylene Glycol 3350 17 GM PACKET PO PRN (18:14)
[2021-03-06] MEDS ORDERED: Senna TAB 8.6 mg TAB PO PRN (18:14)
[2021-03-06] MEDS ORDERED: Famotidine IV 10 MG/ML 2 ml VIAL (20 mg) IV ONE (20:00)
[2021-03-06] MEDS: ceFAZolin 1 GM X 3 DOSES POST-OP Q8H (AddVan) IVPB SCH (22:42)
[2021-03-07 06:03] LABS: ABS Lymphocytes 0.7 10^3/ul (1.0-4.8); ABS Monocytes 0.9 10^3/ul (0-0.8); ABS Neutrophils 9.3 10^3/ul (1.5-7.7); Hematocrit 41 % (35-47); Hemoglobin 14.2 g/dL (12.0-16.0); Mean Corpuscular HGB Conc 35 g/dL (31-36); Mean Corpuscular Hemoglobin 33 pg (27-31); Mean Corpuscular Volume 96 fL (80-97); Mean Platelet Volume 7.1 fL (7.4-10.4); Platelet Count 343 10^3/uL (150-450); Red Blood Count 4.26 10^6 /uL (3.70-4.87); Red Cell Distribution Width 12 % (10-15); White Blood Count 10.9 10^3/uL (3.5-10.8)
[2021-03-07] MEDS: oxyCODONE/Acetamin 5/325 mg TAB PO PRN ×3 (06:18→20:55)
[2021-03-07] MEDS: ceFAZolin 1 GM X 3 DOSES POST-OP Q8H (AddVan) IVPB SCH ×2 (06:19→14:43)
[2021-03-07 06:29] LABS: Calcium 9.4 mg/dL (8.6-10.3)
[2021-03-07] MEDS: Vitamin THERAPEUTIC TAB PO SCH (08:40)
[2021-03-07] MEDS ORDERED: Potassium Chlor 20 meq TAB.ER PO SCH (09:00)
[2021-03-07] MEDS: Enoxaparin 40 MG/0.4 ML SYR SUBCUT SCH (11:39)
[2021-03-07] MEDS: CMCS: Simvastatin 10 mg TAB (NF) PO SCH (17:59)
[2021-03-08] MEDS: oxyCODONE/Acetamin 5/325 mg TAB PO PRN ×3 (01:03→09:33)
[2021-03-08 06:57] LABS: ABS Eosinophils 0.1 10^3/ul (0-0.6); ABS Lymphocytes 1.9 10^3/ul (1.0-4.8); ABS Monocytes 1.1 10^3/ul (0-0.8); ABS Neutrophils 5.8 10^3/ul (1.5-7.7); Eosinophil % 1.2 %; Hematocrit 36 % (35-47); Hemoglobin 13.1 g/dL (12.0-16.0); Lymphocyte % 20.9 %; Mean Corpuscular HGB Conc 36 g/dL (31-36); Mean Corpuscular Hemoglobin 35 pg (27-31); Mean Corpuscular Volume 97 fL (80-97); Mean Platelet Volume 7.6 fL (7.4-10.4); Platelet Count 298 10^3/uL (150-450); Red Blood Count 3.75 10^6 /uL (3.70-4.87); Red Cell Distribution Width 13 % (10-15)
[2021-03-08 07:16] LABS: Calcium 9.2 mg/dL (8.6-10.3); Potassium 3.7 mmol/L (3.5-5.0)
[2021-03-08 08:13] VITALS: BP 123/63
[2021-03-08] MEDS: Vitamin THERAPEUTIC TAB PO SCH (08:54)
[2021-03-08] MEDS: Enoxaparin 40 MG/0.4 ML SYR SUBCUT SCH (08:54)
== END 2021-03-08 10:54 | DRG 482 ==
LOC: ED 09:37 → EDHOLD 14:46 → SSU 19:17 → SUATTDRO 19:25
PROVIDERS: ADMIT Internal Medicine; ATTEND Internal Medicine

== ENCOUNTER 2021-03-08 10:31 | Inpatient (IN) ==
[2021-03-08] MEDS ORDERED: Senna TAB 8.6 mg TAB PO PRN (11:47)
[2021-03-08] MEDS: oxyCODONE/Acetamin 5/325 mg TAB PO PRN (20:59)
[2021-03-09] MEDS: Potassium Chlor 20 meq TAB.ER PO SCH (09:03)
[2021-03-09] MEDS: oxyCODONE/Acetamin 5/325 mg TAB PO PRN ×3 (09:04→20:43)
[2021-03-09] MEDS: Enoxaparin 40 MG/0.4 ML SYR SUBCUT SCH (09:06)
[2021-03-10] MEDS: oxyCODONE/Acetamin 5/325 mg TAB PO PRN ×4 (01:59→21:28)
[2021-03-10 06:17] LABS: ABS Basophils 0.1 10^3/ul (0-0.2); ABS Eosinophils 0.2 10^3/ul (0-0.6); ABS Lymphocytes 2.1 10^3/ul (1.0-4.8); ABS Monocytes 0.9 10^3/ul (0-0.8); ABS Neutrophils 4.7 10^3/ul (1.5-7.7); Eosinophil % 2.2 %; Hematocrit 37 % (35-47); Hemoglobin 13.2 g/dL (12.0-16.0); Mean Corpuscular HGB Conc 35 g/dL (31-36); Mean Corpuscular Hemoglobin 34 pg (27-31); Mean Corpuscular Volume 95 fL (80-97); Mean Platelet Volume 6.8 fL (7.4-10.4); Platelet Count 361 10^3/uL (150-450); Red Blood Count 3.91 10^6 /uL (3.70-4.87); Red Cell Distribution Width 12 % (10-15)
[2021-03-10 06:35] LABS: Albumin 3.8 g/dL (3.2-5.2); Albumin/Globulin Ratio 1.3 (1-3); Calcium 9.5 mg/dL (8.6-10.3); Potassium 3.6 mmol/L (3.5-5.0); Total Bilirubin 0.8 mg/dL (0.2-1.0); Total Protein 6.8 g/dL (6.4-8.9)
[2021-03-10] MEDS: Enoxaparin 40 MG/0.4 ML SYR SUBCUT SCH (08:42)
[2021-03-11] MEDS: oxyCODONE/Acetamin 5/325 mg TAB PO PRN ×4 (04:04→22:03)
[2021-03-11] MEDS: Potassium Chlor 20 meq TAB.ER PO SCH ×2 (09:07→11:57)
[2021-03-11] MEDS: Enoxaparin 40 MG/0.4 ML SYR SUBCUT SCH (09:20)
[2021-03-11 11:28] LABS: Calcium 9.3 mg/dL (8.6-10.3); Potassium 3.7 mmol/L (3.5-5.0)
[2021-03-11] MEDS: Cholecalciferol (VIT D3) 1,000 unit TAB PO SCH (11:57)
[2021-03-12] MEDS: oxyCODONE/Acetamin 5/325 mg TAB PO PRN ×3 (06:00→22:05)
[2021-03-12] MEDS: Enoxaparin 40 MG/0.4 ML SYR SUBCUT SCH (09:09)
[2021-03-12] MEDS: Cholecalciferol (VIT D3) 1,000 unit TAB PO SCH (09:09)
[2021-03-13] MEDS: oxyCODONE/Acetamin 5/325 mg TAB PO PRN ×4 (03:56→23:38)
[2021-03-13] MEDS: Enoxaparin 40 MG/0.4 ML SYR SUBCUT SCH (08:27)
[2021-03-13] MEDS: Potassium Chlor 20 meq TAB.ER PO SCH ×2 (08:27→12:15)
[2021-03-13] MEDS: Cholecalciferol (VIT D3) 1,000 unit TAB PO SCH (12:15)
[2021-03-13] MEDS ORDERED: Magnesium Hydroxide LIQ 30 ML UDC PO PRN (17:47)
[2021-03-14] MEDS: oxyCODONE/Acetamin 5/325 mg TAB PO PRN ×4 (08:10→23:17)
[2021-03-14] MEDS: Cholecalciferol (VIT D3) 1,000 unit TAB PO SCH (08:12)
[2021-03-14] MEDS: Enoxaparin 40 MG/0.4 ML SYR SUBCUT SCH (10:53)
[2021-03-15] MEDS: Potassium Chlor 20 meq TAB.ER PO SCH (08:33)
[2021-03-15] MEDS: Cholecalciferol (VIT D3) 1,000 unit TAB PO SCH (08:33)
[2021-03-15] MEDS: Enoxaparin 40 MG/0.4 ML SYR SUBCUT SCH (08:36)
[2021-03-15] MEDS: oxyCODONE/Acetamin 5/325 mg TAB PO PRN ×3 (08:45→20:16)
[2021-03-16] MEDS: oxyCODONE/Acetamin 5/325 mg TAB PO PRN (01:37)
[2021-03-16 04:22] VITALS: BP 136/44
[2021-03-16] MEDS: Cholecalciferol (VIT D3) 1,000 unit TAB PO SCH (09:43)
[2021-03-16] MEDS: Enoxaparin 40 MG/0.4 ML SYR SUBCUT SCH (09:43)
== END 2021-03-16 15:08 | disposition home health service (06) | DRG 560 ==
LOC: PMRU 11:40
PROVIDERS: ADMIT Physical Medicine & Rehabilitation; ATTEND Physical Medicine & Rehabilitation